=== PATIENT | female | born 1960 | race Hispanic/Latino ===

== ENCOUNTER 2022-01-15 08:16 | Day surgery (SDC) | payer BC ==
[2022-01-15] MEDS ORDERED: SODIUM CHLORIDE 0.9% 500 ML 500 ML IV SCH (09:00)
[2022-01-15 09:20] LABS: Hematocrit 37.8 % (30.3-42.9); Hemoglobin 12.6 gm/dl (10.1-14.3); Mean Corpuscular HGB Conc 33 % (30-34); Mean Corpuscular Volume 93 fl (79-97); Platelet Count 284 K/mm3 (140-440); Red Blood Count 4.06 M/mm3 (3.65-5.03); Red Cell Distribution Width 13.7 % (13.2-15.2)
[2022-01-15 09:33] LABS: BUN/Creatinine Ratio 19; Blood Urea Nitrogen 15 mg/dL (7-17); Calcium 9.1 mg/dL (8.4-10.2); Hemolysis Index 7
--- NOTE | 2022-01-15 09:39 | Anesthesia Consultation ---
Anesthesia Consult and Med Hx Date of service: 01/15/22 - Airway Anesthetic Teeth Evaluation: Good ROM Head & Neck: Adequate Mental/Hyoid Distance: Adequate Intubation Access Assessment: Probably Good - Pulmonary Exam CTA: Yes - Cardiac Exam Cardiac Exam: RRR - Pre-Operative Health Status ASA Pre-Surgery Classification: ASA3 Proposed Anesthetic Plan: MAC - Pulmonary Hx Smoking: No Hx Asthma: Yes (seasonal - has not used inhaler since last year) Hx Respiratory Symptoms: No Hx Sleep Apnea: No - Cardiovascular System Hx Hypertension: Yes (took benazapril this AM) Hx Coronary Artery Disease: No Hx Heart Attack/AMI: No - Central Nervous System Hx Neuromuscular Disorder: No Hx Seizures: No CVA: No - Gastrointestinal Hx Gastroesophageal Reflux Disease: Yes (controlled with protonix) - Endocrine Hx Renal Disease: No Hx Liver Disease: No Hx Non-Insulin Dependent Diabetes: No Hx Thyroid Disease: No - Hematic Hx Anemia: No Hx Sickle Cell Disease: No - Other Systems Hx Alcohol Use: Yes (rarely ) Hx Substance Use: No Hx Cancer: No Hx Obesity: Yes (BMI 35) - Additional Comments Anesthesia Medical History Comments: no hx of anesthesia complications
--- NOTE | 2022-01-15 09:41 | Anesthesia Day of Surgery ---
Anesthesia Day of Surgery - Day of Surgery Patient Examined: Yes Patient H&P Reviewed: Yes Patient is NPO: Yes
[2022-01-15 09:45] LABS: INR 1.37 (0.87-1.13)
[2022-01-15] MEDS ORDERED: diphenhydrAMINE 50 MG/ML VIAL IV ONE (10:00)
[2022-01-15] MEDS ORDERED: FAMOTIDINE 20 MG/2 ML INJ IV SCH (10:00)
[2022-01-15] MEDS ORDERED: methylPREDNISolone Sod Succinate 125 MG/2 ML INJ IV SCH (10:00)
[2022-01-15] MEDS ORDERED: SODIUM CHLORIDE 0.9% 1000 ML 1,000 ML IV SCH (10:15)
[2022-01-15] MEDS ORDERED: HEPARIN 10,000 UNITS/10 ML VIAL ONE (12:14)
[2022-01-15] MEDS ORDERED: HEPARIN/NS 5000 UNIT/500ML 1,000 ML IR ONE (12:14)
[2022-01-15] MEDS ORDERED: LIDOCAINE (1%) 10 MG/1 ML VIAL 20 ML MDV ONE (12:15)
[2022-01-15] MEDS ORDERED: MIDAZOLAM 2 MG/2 ML INJ ONE (12:36)
--- NOTE | 2022-01-15 13:49 | Short Stay Summary ---
Short Stay Documentation Date of service: 01/15/22 - History Principal diagnosis: Right leg DVT H&P: obtained from office - Allergies and Medications Current Medications: Allergies codeine Allergy (Verified 01/15/22 08:42) Itching erythromycin base Allergy (Verified 01/15/22 08:42) Unknown Iodinated Contrast Media Allergy (Verified 01/15/22 08:42) Hives Home Medications Medication Instructions Recorded Confirmed Last Taken Type LORazepam [Ativan] 2 mg PO QHS 01/15/22 01/15/22 01/14/22 History Melatonin [Melatonin 10MG TAB] 10 mg PO DAILY 01/15/22 01/15/22 01/14/22 History Montelukast [Singulair] 10 mg PO QPM 01/15/22 01/15/22 01/15/22 History Multivit-Min/Folic Acid/Biotin 1 each PO DAILY 01/15/22 01/15/22 01/14/22 History [Women Multivit W-Biotin Gummy] Multivit-Min/Iron/Folic Acid/K 1 each PO DAILY 01/15/22 01/15/22 01/14/22 History [Adults Multivitamin Tablet] Pantoprazole [Protonix] 40 mg PO QDAY 01/15/22 01/15/22 01/15/22 History Rivaroxaban [Xarelto] 15 mg PO BID 01/15/22 01/15/22 01/14/22 History benazepril (NF) [Benazepril (Nf)] 20 mg PO DAILY 01/15/22 01/15/22 01/15/22 History Active Medications Famotidine (Famotidine 20 Mg/2 Ml Inj) 20 mg IV ONCE CHARLES Last Admin: 01/15/22 12:05 Dose: 20 mg Sodium Chloride (Nacl 0.9% 1000 Ml) 1,000 mls @ 75 mls/hr IV DIRECT CHARLES Last Admin: 01/15/22 12:05 Dose: 75 mls/hr Methylprednisolone Sodium Succinate (Methylprednisolone Sod Succinate 125 Mg/2 Ml Inj) 125 mg IV ONCE CHARLES Last Admin: 01/15/22 12:05 Dose: 125 mg - Brief post op/procedure progress note Date of procedure: 01/15/22 Pre-op diagnosis: Right leg DVT Post-op diagnosis: same Procedure: Right leg thrombectomy and venoplasty Anesthesia: local Surgeon: ALYCE SOLITARIO Estimated blood loss: minimal Pathology: none Condition: stable - Disposition Condition at discharge: Good Disposition: 01 HOME / SELF CARE / HOMELESS Short Stay Discharge Plan Activity: advance as tolerated Weight Bearing Status: Weight Bear as Tolerated Diet: regular Wound: keep clean and dry, per your surgeon's advice (Remove dressing tonight before bed) Follow up with: ALYCE SOLITARIO MD [Primary Care Provider] - 7 Days
--- NOTE | 2022-01-15 13:54 | Operative Report ---
Operative Report Operative Report: Exam: Right lower extremity venography, right leg thrombectomy, right leg venoplasty Clinical indication: Patient with a history of superficial and deep venous disease both of which been treated. I the patient approximately 2 weeks ago demonstrated focal thrombus in her common femoral vein. This did not extend into her previous placed stents in the deep venous system. Date: 01/15/2022 Procedure: Following an explanation of the risk, benefits and alternatives; written informed consent was obtained. The patient was brought to the angiographic suite and placed in supine position on the examination table. Initial ultrasound evaluation of the patient's leg demonstrated patent femoral veins in the midportion. The patient's leg was prepped and draped in the usual sterile fashion. 2% lidocaine was used for anesthesia. Under ultrasound guidance, the mid femoral vein was cannulated using a 7 cm 18- gauge needle. A 0.035 guidewire was advanced centrally. The needle was removed and a 5 [place] sheath placed. Contrast was then injected through the sheath which demonstrates that the femoral vein is patent. There is near occlusive thrombus in the common femoral vein with only minimal flow distally. A catheter was then advanced over the guidewire and together with the vertebral catheter and guidewire advanced past the thrombus in the common femoral vein. Contrast was injected which demonstrates that the previously placed stents are patent. The sheaths were sequentially upsized to initially 10 [place] sheath. Ultimately, a 12 [place] sheath was placed. Intravascular ultrasound was performed through the 10 [place] sheath which demonstrates that the previously placed stents are widely patent with no intramural thrombus. There is a focal area of thrombus within the common femoral vein. The femoral vein to the sheath insertion site is patent. Thrombectomy of the thrombus is then performed using a 12 [place] penumbra aspiration catheter. 3 passes were made through the thrombus. Post thrombectomy imaging demonstrated significant reduction in the burden of the thrombus with luminal flow from the sheath insertion site to the IVC. Venoplasty of this area was then performed using a 14 mm x 40 mm balloon insufflated to nominal atmospheres at for 30 seconds. Post intervention imaging demonstrated significantly improved flow from the sheath insertion site to the IVC. At this point, the sheath was removed. Hemostasis was achieved using manual compression and a mild compression dressing was applied. The patient tolerated the procedure well. There were no immediate postprocedure complications. Sedation was provided by anesthesia services. Continuous cardiopulmonary mayra toring is utilized. Impression: 1) Right lower extremity venography demonstrating thrombus in the common femoral vein. 2) Right leg thrombectomy using Penumbra 12 [place] catheter. 3) Venoplasty of the common femoral vein. 4) Improved luminal flow from the sheath insertion site to the IVC with minimal residual thrombus.
[2022-01-15] MEDS ORDERED: LIDOCAINE MPF (2%) 20 MG/1 ML VIAL 5 ML ONE (14:04)
[2022-01-15 16:02] VITALS: BP 117/75
--- NOTE | 2022-01-15 16:36 | Post Anesthesia Evaluation ---
- Post Anesthesia Evaluation Patient Participated: Yes Airway Patent: Yes Stable Respiratory Function: Yes Nausea/Vomiting: No Temp > 96.8F: Yes Pain Manageable: Yes Adequeate Hydration: Yes Anesthesia Complications: No
== END 2022-01-15 15:50 | disposition home or self-care (01) ==
LOC: CATH 08:16 → CATHLABREC 08:16
PROVIDERS: ATTEND Radiology Diagnostic Radiology
DX: I87.1 Compression of vein (principal); I87.323 Chronic venous hypertension (idiopathic) with inflammation of bilateral lower extremity; I70.213 Atherosclerosis of native arteries of extremities with intermittent claudication, bilateral legs; I10 Essential (primary) hypertension; J45.909 Unspecified asthma, uncomplicated; K21.9 Gastro-esophageal reflux disease without esophagitis; M19.90 Unspecified osteoarthritis, unspecified site; E66.9 Obesity, unspecified; Z90.49 Acquired absence of other specified parts of digestive tract; Z68.33 Body mass index [BMI] 33.0-33.9, adult; Z88.5 Allergy status to narcotic agent; Z88.8 Allergy status to other drugs, medicaments and biological substances; Z79.899 Other long term (current) drug therapy; Z98.890 Other specified postprocedural states; Z87.01 Personal history of pneumonia (recurrent); Z90.710 Acquired absence of both cervix and uterus; Z72.89 Other problems related to lifestyle; Z68.35 Body mass index [BMI] 35.0-35.9, adult
CPT/HCPCS: 36415; 37187; 37248; 75820; 80048; 85027; 85610; C1725; C1753; C1769; C1894; J1200; J1644; J2250; J2704; J2930; J3490; J7030; Q9967